=== PATIENT | male | born 1990 | race Caucasian/White ===

== ENCOUNTER 2018-06-14 09:58 | Emergency (ER) | payer MEDICAID ==
[2018-06-14] MEDS: HYDROCODONE/APAP (5/325) TAB PO (10:22)
[2018-06-14] MEDS: DIPHTH/TET/ACEL PERTUSS (ADULT) 0.5 ML VIAL IM* (10:22)
[2018-06-14] MEDS: LIDOCAINE 1%/EPI 30 ML INJ INJ (10:38)
[2018-06-14] MEDS: CEPHALEXIN 500 MG CAP PO (10:47)
== END 2018-06-14 12:09 | disposition home or self-care (01) ==
LOC: FTE 09:58
DX: S61.512A Laceration without foreign body of left wrist, initial encounter (principal); X58.XXXA Exposure to other specified factors, initial encounter; Y92.9 Unspecified place or not applicable; Z23 Encounter for immunization
CPT/HCPCS: 12004; 90471; 90715; 99283-25

== ENCOUNTER 2018-06-16 11:24 | Emergency (ER) | payer MEDICAID | END 2018-06-16 12:33 | disposition home or self-care (01) | LOC: FTE 11:24 | DX: Z48.01 Encounter for change or removal of surgical wound dressing (principal) | CPT/HCPCS: 99281; Z7502 ==